=== PATIENT | female | born 1985 | race Caucasian/White ===

== ENCOUNTER 2019-03-20 19:15 | Inpatient (IN) | payer OTHER ==
[2019-03-20 21:35] VITALS: BMI 34.0
[2019-03-20] MEDS ORDERED: Butorphanol Tartrate 1 MG/ML VIAL SLOW IVP PRN (21:41)
[2019-03-20] MEDS ORDERED: hydrALAZINE 20 MG/ML VIAL SLOW IVP PRN (21:41)
[2019-03-20] MEDS ORDERED: Acetaminophen 500 MG TAB PO PRN (21:41)
[2019-03-20] MEDS ORDERED: Promethazine HCl 25 MG/ML VIAL IM PRN (21:41)
[2019-03-20] MEDS ORDERED: Ondansetron PF 4 MG/2 ML Vial IVP PRN (21:41)
[2019-03-20] MEDS ORDERED: HYDROcodone/Acetaminophen 5/325 mg Tablet PO PRN ×2 (21:45)
[2019-03-20] MEDS ORDERED: Carboprost 250 MCG/ML AMP IM PRN (21:45)
[2019-03-20] MEDS ORDERED: NS / Oxytocin 40 units/1000ml 1,000 ML IV SCH (21:45)
[2019-03-20] MEDS ORDERED: Diphenoxylate HCl/Atropine Tablet PO PRN ×2 (21:45)
[2019-03-20] MEDS ORDERED: Ibuprofen 800 MG TAB PO PRN (21:45)
[2019-03-20] MEDS ORDERED: Methylergonovine 0.2 MG/ML VIAL IM PRN (21:45)
[2019-03-20] MEDS ORDERED: NS w/ Oxytocin 10 units 500 ML IV SCH (21:45)
[2019-03-20] MEDS ORDERED: Misoprostol 200 MCG TAB RC PRN (21:45)
[2019-03-20] MEDS ORDERED: Lidocaine 1% (PF) 30 ML VIAL SC PRN (21:45)
[2019-03-20] MEDS ORDERED: Misoprostol 100 MCG TAB PO SCH (21:45)
[2019-03-20] MEDS: NS w/ Oxytocin 10 units 500 ML IV SCH (22:06)
[2019-03-20] MEDS: Lactated Ringer's 1,000 ML IV SCH (22:06)
[2019-03-20 22:22] LABS: Hemoglobin 11.6 g/dL (12.0-16.0); Mean Corpuscular HGB CONC 34.3 g/dL (32.0-36.0); Mean Corpuscular Volume 93.3 fL (78.0-98.0); Mean Platelet Volume 8.8 fL (7.4-10.4); Platelet Count 273 thou/uL (130-400); RBC Distribution Width 13.5 % (11.5-14.5); Red Blood Cell (RBC) Count 3.64 mill/uL (4.20-5.40); White Blood Cell (WBC) Count 10.5 thou/uL (4.8-10.8)
[2019-03-20 23:03] LABS: Syphilis Antibody Nonreactive (Nonreactive); Syphilis Antibody Index 0.04 S/CO (<1.00 Non-Reactive)
[2019-03-20 23:04] LABS: HIV (1/2) Antibody/Antigen Non-Reactive (NonReactive)
[2019-03-20 23:53] LABS: Hep B Surf Ag NonReactive S/CO (NonReactive)
[2019-03-20 23:54] LABS: HBSAg Index 0.36 S/CO (0-0.99)
[2019-03-21] MEDS ORDERED: Misoprostol 100 MCG TAB ONE ×2 (01:15→14:20)
[2019-03-21] MEDS: Lactated Ringer's 1,000 ML IV SCH ×2 (04:05→09:35)
[2019-03-21] MEDS: NS w/ Oxytocin 10 units 500 ML IV SCH (04:06)
[2019-03-21] MEDS ORDERED: Fentanyl 4 mcg/Bup 0.1% Cadd 100 ML ONE ×2 (04:15→11:22)
[2019-03-21] MEDS ORDERED: Ondansetron PF 4 MG/2 ML Vial IVP PRN (05:57)
[2019-03-21] MEDS ORDERED: Naloxone HCl 0.4 mg/ml Vial IVP PRN ×2 (05:57)
[2019-03-21] MEDS ORDERED: Acetaminophen 325 MG TAB PO PRN (05:57)
[2019-03-21] MEDS ORDERED: Lactated Ringer's 500 ML IV PRN (05:57)
[2019-03-21] MEDS ORDERED: diphenhydrAMINE 50 MG/ML VIAL IVP PRN (05:57)
[2019-03-21] MEDS ORDERED: Promethazine HCl 25 MG/ML VIAL IM PRN (05:57)
[2019-03-21] MEDS ORDERED: ePHEDrine/0.9% NaCl/PF SYRINGE 50 mg/10 ml SLOW IVP PRN (05:57)
[2019-03-21] MEDS ORDERED: Fentanyl 4 mcg/Bupivacaine 0.1% Cassette 100 ML EPIDURAL SCH (06:00)
[2019-03-21] MEDS ORDERED: Communication Order-Pharmacy FS SCH (06:00)
[2019-03-21] MEDS ORDERED: Misoprostol 200 MCG TAB ONE (14:20)
[2019-03-21] MEDS ORDERED: Ondansetron ODT 4 MG TAB PO PRN (14:42)
[2019-03-21] MEDS ORDERED: Misoprostol 200 MCG TAB PR SCH (14:45)
[2019-03-21] MEDS ORDERED: NS / Oxytocin 40 units/1000ml 1,000 ML IV SCH (15:12)
[2019-03-21] MEDS ORDERED: HYDROcodone/Acetaminophen 5/325 mg Tablet PO PRN ×2 (15:12→20:59)
[2019-03-21] MEDS ORDERED: Lanolin Ointment 7 GM TUBE TOP PRN (15:12)
[2019-03-21] MEDS ORDERED: Milk Of Magnesia 30 ML UDCUP PO PRN (15:12)
[2019-03-21] MEDS ORDERED: hydrALAZINE 20 MG/ML VIAL SLOW IVP PRN (15:12)
[2019-03-21] MEDS ORDERED: Acetaminophen/Codeine 30-300mg Tablet PO PRN (15:12)
[2019-03-21] MEDS ORDERED: Bisacodyl 10 MG SUPP PR PRN (15:12)
[2019-03-21] MEDS ORDERED: Misoprostol 200 MCG TAB PO SCH (20:00)
[2019-03-21] MEDS: Ferrous Sulfate 325 MG TAB PO SCH (20:10)
[2019-03-21] MEDS ORDERED: Benzocaine-Menthol 82.5 ML CAN TOP PRN (21:00)
[2019-03-21] MEDS: Ibuprofen 800 MG TAB PO PRN (21:24)
[2019-03-21] MEDS: Docusate Calcium (SURFAK) 240 MG CAP PO SCH (21:24)
[2019-03-21] MEDS: HYDROcodone/Acetaminophen 5/325 mg Tablet PO PRN (23:53)
[2019-03-21] MEDS: Misoprostol 100 MCG TAB PO SCH (23:53)
[2019-03-22] MEDS: HYDROcodone/Acetaminophen 5/325 mg Tablet PO PRN (04:00)
[2019-03-22] MEDS: Misoprostol 100 MCG TAB PO SCH ×2 (05:47→12:06)
[2019-03-22] MEDS: Ibuprofen 800 MG TAB PO PRN (05:47)
[2019-03-22] MEDS: Ferrous Sulfate 325 MG TAB PO SCH (08:34)
[2019-03-22] MEDS: Docusate Calcium (SURFAK) 240 MG CAP PO SCH (08:47)
[2019-03-22] MEDS ORDERED: Prenatal Vitamin 1 TAB PO SCH (09:00)
[2019-03-22 13:07] VITALS: BP 125/72; TEMP 97.6
[2019-03-22] MEDS ORDERED: Adacel (T-DAP) 0.5 ML SYRINGE IM ONE (15:12)
== END 2019-03-22 16:05 | disposition home or self-care (01) | DRG 807 ==
LOC: L&D 19:32 → 3SE 03-21 19:51
PROVIDERS: ADMIT Obstetrics & Gynecology; ATTEND Obstetrics & Gynecology
PROC: 10E0XZZ Delivery of Products of Conception, External Approach (ICD-10-PCS; principal; 2019-03-21)
PROC: 10907ZC Drainage of Amniotic Fluid, Therapeutic from Products of Conception, Via Natural or Artificial Opening (ICD-10-PCS; 2019-03-21)
PROC: 3E0P7VZ Introduction of Hormone into Female Reproductive, Via Natural or Artificial Opening (ICD-10-PCS; 2019-03-21)
PROC: 3E033VJ Introduction of Other Hormone into Peripheral Vein, Percutaneous Approach (ICD-10-PCS; 2019-03-21)
DX: O36.63X0 Maternal care for excessive fetal growth, third trimester, not applicable or unspecified (principal); Z37.0 Single live birth; O70.1 Second degree perineal laceration during delivery; Z3A.39 39 weeks gestation of pregnancy
CPT/HCPCS: 36415; 51702; 85027; 86780; 86850; 86900; 86901; 87340; 87389; J2001; J2590